=== PATIENT | female | born 1965 | race Caucasian/White ===

== ENCOUNTER 2016-12-30 12:56 | Emergency (ER) | payer OTHER ==
[~2016-12-30] VITALS: Ht 175.3 cm; Wt 77.1 kg
[2016-12-30] MEDS ORDERED: DAILY MULTIPLE1 EACH PO (13:11)
[2016-12-30] MEDS ORDERED: NORCO 5-325 TA1 EACH PO (13:47)
== END 2016-12-30 14:09 | disposition home or self-care (01) ==
LOC: ED 12:56
PROC: 2W3DX1Z Immobilization of Left Lower Arm using Splint (ICD-10-PCS; principal; 2016-12-30)
DX: S52.502A Unspecified fracture of the lower end of left radius, initial encounter for closed fracture (principal); S09.90XA Unspecified injury of head, initial encounter; Z79.899 Other long term (current) drug therapy; W01.0XXA Fall on same level from slipping, tripping and stumbling without subsequent striking against object, initial encounter
CPT/HCPCS: 29125; 73110; 99283

== ENCOUNTER 2017-01-11 08:50 | Day surgery (SDC) | payer OTHER ==
[~2017-01-11] VITALS: Ht 175.3 cm; Wt 77.1 kg
[~2017-01-11 08:50] MED LIST: DAILY MULTIPLE1 EACH PO; NORCO 5-325 TA1 EACH PO
--- NOTE | 2017-01-11 09:45 | NUR ---
PT RESTING, WAITING FOR DR CONTRERAS TO COME IN. SHE EXPRESSED FRUSTRATION THAT SHE FELL AND BROKE HER WRIST-ON HER NEW SIDEWALK NO LESS. PT REQUESTED PRAYER, DR VEE CAME IN JUST WE FINISHED. WILL FOLLOW NEEDED
--- NOTE | 2017-01-11 11:08 | NUR ---
01/11/17 1108 Juhi Hutton 1101-PATIENT ARRIVED TO PACU ON 10L MASK O2 SAT 100% PATIENT REACTIVE REPORTING PAIN "PINCHING" UNABLE TO RATE WITH NUMBER, GOOD CAP REFILL WARMTH. TERRELL PULSE. DRESSING CDI. 1106-PATIENT MEDICATED WITH 25 MCG FENTANYL IVP.
--- NOTE | 2017-01-11 13:27 | NUR ---
1300 UP TO BR VOIDS QS. AMB WELL TOOK PUDDING AND WATER 200MLS. WANTS TO GO HOME. HERE.
--- NOTE | 2017-01-13 07:42 | OR ---
[facility] [address], [place] [address] Signed PREOPERATIVE DIAGNOSIS: Left distal radius fracture, comminuted. POSTOPERATIVE DIAGNOSIS: Left distal radius fracture, comminuted. PROCEDURE PERFORMED: Open reduction and internal fixation of left distal radius. SURGEON: Larisa Galicia M.D. VENDOR REPRESENTATIVES: Silva Soni PA-C. Silva was present for the entire surgery and was critical for retraction, wound closure, and casting. ANESTHESIA: General. BLOOD LOSS: Minimal. TOURNIQUET TIME: 40 minutes. IMPLANTS: 8-hole Synthes distal radius plate with screws. BRIEF HISTORY: Pasquale is a 51-year-old female who suffered a ground-level fall and fractured distal radius, which was unstable and poorly positioned. She had the risks and benefits of operative discussed with her. She elected to proceed. DESCRIPTION OF PROCEDURE: On ce consent was obtained, she was taken to the operating room. After adequate anesthesia, she was placed on the operating room table. All downside pressure points were well padded. A well-padded proximal arm tourniquet was placed. The arm was then prepped a nd draped in a standard sterile fashion. The arm was exsanguinated using Esmarch bandage and tourniquet inflated to 200 mmHg. Standard volar approach through the FCR sheath was taken through the skin and subcutaneous tissue. FCR was carefully retracted an d protected radially. The floor of the FCR sheath was then entered, and the pronator was encountered. This was elevated off its radial attachment and mobilized ulnarly. This was used then to protect the median nerve. The fracture was easily reduced and hel d using a single K-wire from the radial styloid proximally. The plate was then fashioned to fit the distal radius. The radius was still not reduced in inclination and I attached the plate with one screw to the distal radius along the articular margin. Then , using two proximal screws, we reduced the plate down to the body of the radius. This created a nice reduction. The remaining distal screws were placed, two locking screws were placed, four screws that were nonlocking. Three screws were placed in the prox i mal end of the plate. Final radiograph showed good fracture reduction and plate placement and screw length. The wound was copiously irrigated with antibiotic solution. Electronically Signed By: LARISA GALICIA MD 01/13/17 0742 PATIENT NAME: PASQUALE GRANADOS OPERATIVE REPORT DATE OF : 61 PHYSICIAN: LARISA GALICIA MD REPORT #: [id number] REPORT IS CONFIDENTIAL AND NOT TO BE RELEASED WITHOUT AUTHORIZATION [facility] [address], [place] [address] Signed The pronator was reduced and closed back into position. The floor of the FCR sheath was closed as was subcutaneous tissue. The skin was closed with a 2-0 Quill and Dermabond. She tolerated the procedure well. All sponge, needle, and instrument counts were correct. She was dressed with a sterile dressing and a radial gutter splint. She tolera manan the procedure well. All sponge, needle, and instrument counts were correct. Larisa Galicia MD BA/Joelle /[id number] Electronically Signed By: LARISA GALICIA MD 01/13/17 0742 PATIENT NAME: PASQUALE GRANADOS OPERATIVE REPORT DATE OF : 61 PHYSICIAN: LARISA GALICIA MD REPORT #: [id number] REPORT IS CONFIDENTIAL AND NOT TO BE RELEASED WITHOUT AUTHORIZATION
== END 2017-01-11 13:20 | disposition home or self-care (01) ==
LOC: DS 08:50 → OPS 08:50 → DS 10:15 → OPS 10:15
PROVIDERS: Specialist
PROC: 0PSJ04Z Reposition Left Radius with Internal Fixation Device, Open Approach (ICD-10-PCS; principal; 2017-01-11 10:15)
DX: S52.532A Colles' fracture of left radius, initial encounter for closed fracture (principal); W18.30XA Fall on same level, unspecified, initial encounter
CPT/HCPCS: 01830; 64417; 73100; 76942; C1713; J0461; J0690; J1100; J1885; J2250; J2405; J2704; J2765; J2795; J3010; J7120

== ENCOUNTER 2025-06-07 06:51 | Day surgery (SDC) | payer OTHER ==
[~2025-06-07] VITALS: Ht 175.3 cm; Wt 75.0 kg
[~2025-06-07 06:51] MED LIST changes: +LACTATED RINGER'S 1,000 ML IV SCH
[2025-06-07] MEDS ORDERED: LIDOCAINE HCL 1% 5 ML SDV INJ ONE (07:00)
[2025-06-07] MEDS ORDERED: IBLOOD GLUCOSE TEST STRIP 1 EA TEST VI PRN (07:00)
[2025-06-07 07:10] VITALS: BP 125/61
[2025-06-07] MEDS ORDERED: LIDOCAINE HCL 2% 5 ML SDV ONE (07:42)
--- NOTE | 2025-06-07 08:25 | NUR ---
06/07/25 0825 Juhi Hutton 0877-PATIENT ARRIVED TO PACU ON 2L NC RR EVEN LAYING LEFT LATERAL NONAROUSABLE. SINUS BRADYCARDIA HR 50'S IVF INFUSING. ABDOMEN SOFT
[2025-06-07 09:26] VITALS: BP 115/75
== END 2025-06-07 09:30 | disposition home or self-care (01) ==
LOC: DS 06:51 → OPS 06:51 → DS 07:30 → OPS 08:40 → DS 08:40 → OPS 09:30
PROVIDERS: ATTEND Surgery
PROC: 0DJD8ZZ Inspection of Lower Intestinal Tract, Via Natural or Artificial Opening Endoscopic (ICD-10-PCS; principal; 2025-06-07 08:40)
DX: Z12.11 Encounter for screening for malignant neoplasm of colon (principal); K57.30 Diverticulosis of large intestine without perforation or abscess without bleeding; Z86.0101 Personal history of adenomatous and serrated colon polyps; Z80.0 Family history of malignant neoplasm of digestive organs
CPT/HCPCS: 00811; J2003; J2704; J7121